=== PATIENT | male | born 1970 | race African-American/Black ===

== ENCOUNTER 2020-02-26 07:29 | Emergency (ER) | payer BC, OTHER ==
[~2020-02-26] VITALS: Ht 177.8 cm; Wt 103.9 kg
[2020-02-26 07:50] VITALS: BP 145/95
[2020-02-26] MEDS ORDERED: KETOROLAC TROMETH 60MG/2ML VIAL IM ONE (09:15)
== END 2020-02-26 09:35 | disposition home or self-care (01) ==
LOC: ER 07:29
DX: S16.1XXA Strain of muscle, fascia and tendon at neck level, initial encounter (principal); M50.323 Other cervical disc degeneration at C6-C7 level; W18.39XA Other fall on same level, initial encounter; Y93.89 Activity, other specified; Y92.89 Other specified places as the place of occurrence of the external cause; Y99.8 Other external cause status
CPT/HCPCS: 36415; 72040; 72070; 72100; 87426; 96372; 99284; J1885